=== PATIENT | female | born 1965 | race Two or more races ===

== ENCOUNTER 2020-10-23 09:30 | Day surgery (SDC) | payer OTHER | END 2020-10-23 14:55 | disposition home or self-care (01) | LOC: AMB-ENDOS 09:30 | PROVIDERS: ATTEND Surgery | DX: K62.89 Other specified diseases of anus and rectum (principal); K64.8 Other hemorrhoids; Z20.822 Contact with and (suspected) exposure to COVID-19 ==

== ENCOUNTER 2024-12-22 07:00 | Day surgery (SDC) | payer OTHER ==
[2024-12-16 08:55] LABS: BASO % 0.6 % (0.1-1.2); EOS # 0.08 (0.04-0.54); EOS % 0.8 % (0.7-7.0); LYMPH # 3.53 (1.18-3.74); LYMPH % 37.5 % (19.3-53.1); MEAN PLATELET VOLUME 11.60 fl (9.4-12.4); MONO # 0.76 (0.24-0.82); MONO % 8.1 % (4.7-12.5); NEUT # 4.97 (1.56-6.13); NEUT % 52.8 % (34.0-71.1); RED CELL DISTRIBUTION WIDTH 13.9 % (11.6-14.4)
[2024-12-16 08:56] LABS: URINE APPEARANCE Clear; URINE BILIRRUBIN Negative (NEGATIVE); URINE BLOOD Negative; URINE COLOR Yellow; URINE GLUCOSE Negative (NEGATIVE); URINE KETONE Negative (NEGATIVE); URINE LEUKOCYTE Negative; URINE NITRATE Negative; URINE PROTEIN Negative (NEGATIVE); URINE UROBILINOGEN 0.2 E.U./dl
[2024-12-16 08:58] VITALS: BP 143/85
[2024-12-16 08:59] LABS: URINE BACTERIA 483.4 uL (0.0-1933); URINE EPITHELIAL CELLS 13.2 uL (0.0-38.8); URINE RBC 2.1 uL (0.0-20.8); URINE WBC 4.1 uL (0.0-23.2)
[2024-12-16 09:22] LABS: INR 1.0
[2024-12-16 09:26] LABS: URINE CAST 0.00 uL (0.0-1.40)
[2024-12-16 09:55] LABS: ALT/SGPT 24.0 U/L (12-78); AST/SGOT 18.0 U/L (15-37); BILIRUBIN TOTAL 0.88 mg/dL (0.3-1.2); BUN CREA RATIO 13.0 (7.0-25.0); CREATININE SERUM 0.77 mg/dL (0.55-1.02); GFR 76.21; GLOBULINA 3.7 G/DL (2.4-3.5); GLUCOSE FASTING 111.0 mg/dL (65-100); OSMOLALITY SERUM 287.0 MOSM/KG (275-295)
[~2024-12-22] VITALS: Ht 160 cm; Wt 80.7 kg
[~2024-12-22 07:00] MED LIST: AVAPRO150 MG; CARAFATE1 GM PO; MIRALAX17 GM PO; NEXIUM40 M1 PO; PROTONIX40 MG PO
[2024-12-22] MEDS ORDERED: CEFTRIAXONE SODIUM 2,000 MG VIAL ONE (07:28)
[2024-12-22] MEDS ORDERED: METRONIDAZOLE/SODIUM CHLORIDE 500 MG/100 ML PIGGYBACK IV ONE ×2 (07:29→09:00)
[2024-12-22] MEDS ORDERED: BUPIVACAINE HCL/MPF 0.5% 30ML VIAL ONE (08:14)
[2024-12-22] MEDS ORDERED: HEMOSTATIC MATRIX 1 KIT KIT TOP ONE ×2 (08:15→09:00)
[2024-12-22] MEDS ORDERED: POVIDONE-IODINE 118 ML BOTT TOP ONE ×2 (08:15→09:00)
[2024-12-22] MEDS ORDERED: LIDOCAINE HCL 1%/EPINEPHRINE 20ML VIAL IJ ONE ×2 (08:15→09:00)
[2024-12-22] MEDS ORDERED: DIBUCAINE 30 GM TUBE ONE (08:15)
[2024-12-22] MEDS ORDERED: DIPHENHYDRAMINE HCL 50 MG/ML VIAL 1ML ONE (08:40)
[2024-12-22] MEDS ORDERED: BUPIVACAINE HCL/PF 0.25% 30ML VIAL InF ONE (08:45)
[2024-12-22] MEDS ORDERED: DIBUCAINE 30 GM TUBE RECTAL ONE (09:00)
[2024-12-22] MEDS ORDERED: DIPHENHYDRAMINE HCL 50 MG/ML VIAL 1ML IV ONE (09:00)
[2024-12-22] MEDS ORDERED: CEFTRIAXONE SODIUM 2,000 MG VIAL IV ONE (09:00)
[2024-12-22] MEDS ORDERED: PERCOCET 5-3251 EACH PO (09:26)
[2024-12-22] MEDS ORDERED: RECTICARE30 GM TOP (09:27)
== END 2024-12-22 18:10 | disposition home or self-care (01) ==
LOC: CIR.AMB 07:00
PROVIDERS: ATTEND Surgery
DX: K64.3 Fourth degree hemorrhoids (principal); K64.4 Residual hemorrhoidal skin tags; C49.A2 Gastrointestinal stromal tumor of stomach